=== PATIENT | female | born 1980 | race Caucasian/White ===

== ENCOUNTER 2016-10-11 18:57 | Emergency (ER) | payer BC ==
--- NOTE | 2016-10-13 11:37 | ER ---
ADMIT: 10/11/2016 RM/LOC: ER [facility] MR#: [id number] [address] [id number] MARYLINBRITTANY Arias [address] [place] [id number] Emergency Room Report SEX: F AGE: 36 : 1980 DATE: 10/11/2016 CHIEF COMPLAINT: Left hand laceration. HISTORY OF PRESENT ILLNESS: This is a pleasant 36-year-old, white female, who presents to the emergency room following a laceration sustained to her left hand. The patient states this happened just prior to arrival to her home when she was closing a window. She states she went to close the window and the glass broke in her hand, went through the glass. She sustained a laceration to the palmar aspect of her left hand. She describes the pain as throbbing, rates as a 2/10, has not taken any medications for the pain, just applied pressure to the wound and presented to the ER for evaluation. She is otherwise healthy. Takes no medications. Has no past medical history. COURSE IN THE EMERGENCY ROOM: Patient was seen and examined. Vital signs stable. Does have a laceration to the palmar aspect of the left hand. Sensation is intact. Capillary refill is brisk. There is no bleeding from the wound site when I examined it. The laceration was repaired using 5-0 Prolene. Three sutures were placed. The wound edges were well-averted. The patient was neurovascularly intact following the procedure with a brisk capillary refill. IMPRESSION: Laceration to the left hand, palmar side. DISPOSITION: The patient was discharged with wound care instructions to keep the wound clean and dry for the next 24 hours. She should avoid submerging in water until sutures removed. She can use ibuprofen or Tylenol as needed for pain. She can use ice for pain or swelling. She is to follow up with Roselia Greenwood in 7 days to have the sutures removed. She was told to monitor for any signs of infection including redness, heat or exudates and to either return or call her primary care as antibiotics would likely need to be started. The patient was discharged from the department in stable condition. PROCEDURE NOTE: PROCEDURE: Laceration repair. The patient provided verbal consent for repair of her laceration. The site was anesthetized using local lidocaine in a field block method. After anesthesia was achieved, the wound was thoroughly irrigated and examined. No evidence of any underlying damage. No evidence of any foreign body. The wound was repaired using three 4-0 Prolene and covered using gauze dressing. JANELLE Kumar / oJshua Santillan MD / joelle JOB #: [id number] CC: Joshua Santillan MD, Attending Physician Roselia Greenwood PA-C, Family Physician
== END 2016-10-11 19:00 | disposition home or self-care (01) ==
LOC: ER 18:57
PROC: 0HQGXZZ Repair Left Hand Skin, External Approach (ICD-10-PCS; principal; 2016-10-11)
DX: S61.412A Laceration without foreign body of left hand, initial encounter (principal); W25.XXXA Contact with sharp glass, initial encounter; Y92.009 Unspecified place in unspecified non-institutional (private) residence as the place of occurrence of the external cause